=== PATIENT | male | born 1960 | race Caucasian/White ===

== ENCOUNTER 2017-04-01 08:52 | Emergency (ER) | payer BC ==
[2017-04-01 09:42] VITALS: BP 127/81
--- NOTE | 2017-04-01 11:29 | UC ---
Dena Tang Emily, scribed for Lorna Askew DO on 04/01/17 at 1054 . Respiratory Complaint HPI - HPI Summary HPI Summary: This patient is a 57 year old M presenting to urgent care with a chief complaint of waxing and waning cough that began 6 weeks ago and worsened 2 weeks ago. The patient rates the pain 0/10 in severity. Symptoms aggravated by deep breaths. Symptoms alleviated by nothing. Patient reports chest congestion and nasal congestion. Patient denies fever, chills, diaphoresis, sore throat, ear ache, CP, SOB, abd pain, nausea, and vomiting. - History of Current Complaint Chief Complaint: UCRespiratory Stated Complaint: URI Time Seen by Provider: 04/01/17 09:39 Hx Obtained From: Patient Onset/Duration: Sudden Onset, Lasting Weeks, Still Present Timing: Constant Severity Initially: Mild Severity Currently: Mild Pain Intensity: 0 Pain Scale Used: 0-10 Numeric Character: Cough: Productive Aggravating Factors: Deep Breaths Alleviating Factors: Nothing Associated Signs And Symptoms: Positive: Pleuritic Chest Pain, Nasal Congestion - Allergies/Home Medications Allergies/Adverse Reactions: Allergies Allergy/AdvReac Type Severity Reaction Status Date / Time No Known Allergies Allergy Verified 04/01/17 09:41 Home Medications: Home Medications Phenylephrine/Dm/Acetaminop/GG [Tylenol Cold-Flu Severe Caplet] 1 each PO [History] PMH/Surg Hx/FS Hx/Imm Hx Previously Healthy: Yes Endocrine History: Other Other Endocrine History: Negative Cardiovascular History: Other Other Cardiovascular History: Negative - Surgical History Surgical History: None Surgery Procedure, Year, and Place: WISDOM TEETH - Family History Known Family History: Negative: Cardiac Disease, Hypertension, Diabetes - Social History Occupation: Employed Full-time Lives: With Family Alcohol Use: Occasionally Substance Use Type: None Smoking Status (MU): Current Some Day Smoker Type: Cigarettes Review of Systems Constitutional: Other - Negative fever and chills Skin: Other - Negative diaphoresis ENT: Sinus Congestion, Other - Negative sore throat and ear ache Respiratory: Cough, Other - Positive chest congestion. Negative SOB Cardiovascular: Other - Negative CP Gastrointestinal: Other - Negative abd pain, nausea, and vomiting All Other Systems Reviewed And Are Negative: Yes Physical Exam - Summary Physical Exam Summary: Appearance: Well-Appearing, No Pain Distress, Well-Nourished Eyes: conjunctiva clear, no discharge ENT: Hearing grossly normal, no muffled/hoarse voice. TMs normal, negative tonsillar swelling, negative tonsillar exudate, negative trismus. Neck: Normal, Supple Respiratory/Lung Sounds: Lungs clear, No respiratory distress, No accessory muscle use, Prolonged expiration at the bases Cardiovascular: RRR, No murmur Abdomen (if she checks): Nontender, Soft, no guarding, not distended Bowel Sounds (if she checks): Present Musculoskeletal: Normal Neurological: Alert, muscle tone normal Psychiatric:Normal, age appropriate behavior Skin: Normal, Warm, Dry, Normal color Triage Information Reviewed: Yes Vital Signs: Initial Vital Signs Temp 98.1 F 04/01/17 09:38 Pulse 84 04/01/17 09:38 Resp 18 04/01/17 09:38 BP 127/81 04/01/17 09:38 Pulse Ox 99 04/01/17 09:38 Vital Signs Reviewed: Yes UC Diagnostic Evaluation - Laboratory O2 Sat by Pulse Oximetry: 99 Respiratory Course/Dx - Course Course Of Treatment: This patient is a 57 year old M presenting to urgent care with a chief complaint of waxing and waning cough that began 6 weeks ago and worsened 2 weeks ago. The patient will be discharged with a prescription for Albuterol inhaler, azithromycin, benzonatate, guaifenesin, and guaifenesin with codeine and with follow up from PCP. Medications reviewed. Allergies reviewed. Patient has been encouraged to quit smoking. - Differential Dx/Diagnosis Provider Diagnoses: Bronchitis. Allergies Discharge - Discharge Plan Condition: Stable Disposition: HOME Prescriptions: Albuterol HFA INHALER* [Ventolin HFA Inhaler*] 2 puff INH Q4H PRN #1 mdi PRN Reason: Sob/Wheezing Azithromycin TAB* [Zithromax TAB (Z-TEDDY) 250 mg #6 tabs] 0 mg PO .SEE INSTRUCTIONS #6 tab Benzonatate CAP* [Tessalon 100 MG CAP*] 100 mg PO TID #30 cap guaiFENesin ER TAB [Mucinex*] 600 mg PO BID PRN #1 box PRN Reason: Cough guaiFENesin/CODIEN 100MG-10MG* [Robitussin AC 100Mg-10Mg*] 5 - 10 ml PO Q4H PRN #100 udc MDD 10ml PRN Reason: Cough Patient Education Materials: Acute Bronchitis (ED), Allergies (ED) Referrals: Cyril Malone MD [Primary Care Provider] - If Needed Additional Instructions: THE FOLLOWING MED IS FOR TREATING THE ALLERGIC COMPONANT OF YOUR CONDITION. IT TAKES ABOUT 3 DAYS BEFORE IT WILL START TO WORK. NASAL CORTICOSTEROID INHALER: Nasal "cortisone" inhalers decrease swelling and inflammation in the nasal passages. Nasal steroids decrease the effects of allergy and infection without affecting your whole body. They do NOT cause the side effects we see with steroid shots or pills. These inhalers are a long-term investment in keeping your nose and sinuses clear. You probably won't notice any difference for at least a day. Sometimes it takes several days. Once you have noticed improvement, you can cut back on the inhaler. If your problem only occurs at certain times of the year, you can stop it when you' re better. There's no harm in using it for a long time. Some patients may notice a dry tight throat at first. If you develop severe pain, fever, or foul nasal drainage, see the doctor at once. THE NEXT 4 MEDS WILL HELP WITH THE UNPLEASANTNESS OF COUGHING INHALED BRONCHODILATORS: You have received a prescription for an inhaled bronchodilator -- a medication which stimulates the airways in the lung to dilate. This improves the flow of air in asthma, bronchitis, and emphysema. These medicines have some similarity to adrenaline, and can cause similar side effects: shakiness, racing heart, and a sense of nervousness. These side effects decrease with time. Contact your doctor if these side effects are severe. Do not over-use the medicine. Too-frequent use of the inhaler may make it ineffective. Call your doctor if the inhaler is not controlling your symptoms at the prescribed doses. COUGH-SUPPRESSANT & EXPECTORANT MEDICATION: You are to use a cough medication as needed for relief of symptoms. This medicine is a combination of an expectorant (to make the mucous thinner and more easily "coughed up") and a cough suppressant (to reduce the frequency of coughing). The cough-suppressant medicine is related to narcotics. You may experience mild nausea and sleepiness. Some patients who are very sensitive to narcotics may have stomach pain from this medicine. Taking the medicine with food reduces these side effects. Do not drive or work with machinery until you know how this medicine affects you. The expectorant should have no side effects. Iodine-containing expectorants (such as organidin) should not be taken by persons with active thyroid disease unless approved by your doctor. Call the doctor if you develop shortness of breath, hives, rash, itching, lightheadedness, or severe nausea and vomiting. EXPECTORANT MEDICATION: WE SENT IN A SCRIPT FOR MUCINEX SO THAT IT IS EASIER FOR YOU TO PICK THE RIGHT MED AT THE PHARMACY. HOWEVER, YOU CAN ALSO GO TO THE [facility] STORE AND BUY PLAIN GUAIFENESIN WITHOU BINDERS OR FILLERS. An expectorant medicine has been prescribed. This type of drug makes mucous thinner, helping the sinuses, nose, and bronchial tubes to remain free of pus and mucous. Expectorants make a cough less severe and more comfortable, and help infected sinuses drain. In general, antihistamines defeat the purpose of the expectorant by making mucous thicker. They should be avoided unless specifically recommended by your physician. TESSALON PERLES: You have received a prescription for Tessalon Perles (benzonatate). This is a non-narcotic medicine for relief of cough. It usually works in about 15- 20 minutes and lasts around four hours. Tessalon Perles should be swallowed. They should not be chewed or dissolved in the mouth (this can produce temporary numbing of the mouth and choking can occur). If you develop any adverse effects such as wheezing, shortness of breath, hives, rash, itching, or lightheadedness, please return at once. ANTIBIOTICS ARE NOT CURRENTLY INDICATED FOR YOUR CONDITION. hOWEVER, IF YOUR SYMPTOMS WORSEN OR PERSIST FOR OVER THE NEXT 3-5 DAYS, YOU CAN TAKE THE FOLLOWING MEDICATION: AZITHROMYCIN: Azithromycin (Zithromax) is a broad spectrum antibiotic in the same class as erythromycin. It can treat a variety of bacterial infections, but is most frequently used for respiratory infections. Azithromycin is extremely long-lasting. It accumulates in body tissues and continues to kill bacteria for many days. In order to improve absorption, Azithromycin should be taken at least one hour before or two hours after a meal. It does not have the same strong tendency to upset the stomach as erythromycin and is usually very well tolerated. Patients who have had a rash or other true allergic reactions to erythromycin should not take this medication. Call if you develop gastrointestinal distress, severe diarrhea, rash, hives, itching, or shortness of breath. ANYTIME YOU TAKE AN ANTIBIOTIC, IT IS IMPORTANT TO REPLENISH THE BODY'S SUPPLY OF "GOOD BACTERIA." YOU CAN GET GOOD BACTERIA FROM HIGH QUALITY CULTURED FOODS SUCH LOCAL YOGURT, SOUR KRAUT, MAHAMED BLAS, NATURALLY FERMENTED PICKLES AND PROBIOTIC DRINKS. YOU CAN ALSO GET GOOD BACTERIA FROM A PROBIOTIC SUPPLEMENT. DO NOT TAKE XANAX WHILE YOU ARE TAKING COUGH MEDICINES. The documentation as recorded by the Dena owens Emily accurately reflects the service I personally performed and the decisions made by me, Lorna Askew DO.
== END 2017-04-01 11:15 | disposition home or self-care (01) ==
LOC: UCEAST 08:52
DX: J40 Bronchitis, not specified as acute or chronic (principal); R09.81 Nasal congestion; J31.0 Chronic rhinitis; Z72.0 Tobacco use
CPT/HCPCS: 99202; G0463

== ENCOUNTER 2018-01-16 21:31 | Emergency (ER) | payer BC ==
--- NOTE | 2018-01-16 21:56 | ED ---
Syncope/Near Syncope - HPI Summary HPI Summary: This patient is a 57 year old M brought in by ambulance to [facility] with a chief complaint of several syncopal episodes since earlier this evening. The patient reports that he felt dizzy while at a bar and then woke up on the floor. Witnesses reported that that patient fell on his face. EMS note that the patient was briefly in AFib but converted to NSR en route and was hypotensive. Patient reports that he saw his PCP 1 day ago and had an EKG done. The patient rates the pain 0/10 in severity. Symptoms aggravated by nothing. Symptoms alleviated by nothing. Patient reports dizziness, vision changes, chest pain, and pain in the right side of his face. Patient denies palpitations or SOB. Patient reports that he had 1.5 pints to drink [employer]. - History Of Current Complaint Time Seen by Provider: 01/16/18 21:44 Hx Obtained From: Patient Onset/Duration: Sudden Onset, Lasting Minutes, Resolved Timing: Minutes Context: Witnessed Activity At Onset: At Rest Associated Head Trauma: Yes Aggravating Factor(s): Nothing Alleviating Factor(s): Nothing Associated Signs And Symptoms: Negative - negative palpitations, Chest Pain, Dizzy - Allergies/Home Medications Allergies/Adverse Reactions: Allergies Allergy/AdvReac Type Severity Reaction Status Date / Time No Known Allergies Allergy Verified 01/07/18 09:22 Home Medications: Home Medications NK [No Home Medications Reported] 01/16/18 [History Confirmed 01/16/18] PMH/Surg Hx/FS Hx/Imm Hx Endocrine/Hematology History: Reports: Hx Thyroid Disease - GRAVE'S DISEASE Denies: Hx Diabetes Cardiovascular History: Denies: Hx Congestive Heart Failure, Hx Hypertension Respiratory History: Reports: Hx Sleep Apnea History: Reports: Hx Kidney Stones Denies: Hx Renal Disease, Other Problems/Disorders Sensory History: Reports: Hx Contacts or Glasses - DISTANCE ONLY Denies: Hx Hearing Aid Opthamlomology History: Reports: Hx Contacts or Glasses - DISTANCE ONLY Psychiatric History: Reports: Hx Anxiety - Surgical History Surgery Procedure, Year, and Place: WISDOM TEETH Hx Anesthesia Reactions: No - NOT THAT PATIENT RECALLS Infectious Disease History: Denies: Traveled Outside the [place] in Last 30 Days - Family History Known Family History: Negative: Cardiac Disease, Hypertension, Diabetes - Social History Alcohol Use: Occasionally Substance Use Type: Reports: None Smoking Status (MU): Current Some Day Smoker Type: Cigarettes Review of Systems Negative: Fever Positive: Other - positive vision changes Negative: Epistaxis Positive: Chest Pain. Negative: Palpitations Musculoskeletal: Other - right side facial pain Neurological: Other - positive dizziness Positive: Syncope All Other Systems Reviewed And Are Negative: Yes Physical Exam - Summary Physical Exam Summary: VITAL SIGNS: Reviewed. GENERAL: Patient is a well-developed and nourished MALE who is lying comfortable in the stretcher. Patient is not in any acute respiratory distress. HEAD AND FACE: No ecchymosis, hematomas or skull depressions. No sinus tenderness. Red tender area over right side of face. EYES: EOMI x 2, no nystagmus. Subconjunctival hemorrhage of right eye over the temporal side. left pupil is 2-3mm round and reactive. Right pupil is oval in shape and sluggish. Horizontal dimension is 2-3 mm, vertical dimension 1-2 mm. EARS: Hearing grossly intact. Ear canals and tympanic membranes are within normal limits. MOUTH: Oropharynx within normal limits. NECK: Supple, trachea is midline, no adenopathy, no JVD, no carotid bruit, no c- spine tenderness, neck with full ROM. CHEST: Symmetric, no tenderness at palpation LUNGS: Clear to auscultation bilaterally. No wheezing or crackles. CVS: Regular rate and rhythm, S1 and S2 present, no murmurs or gallops appreciated. ABDOMEN: Soft, non-tender. No signs of distention. No rebound no guarding, and no masses palpated. Bowel sounds are normal. EXTREMITIES: FROM in all major joints, no edema, no cyanosis or clubbing. NEURO: Alert and oriented x 3. No acute neurological deficits. Speech is normal and follows commands. SKIN: Dry and warm Triage Information Reviewed: Yes Vital Signs Reviewed: Yes Diagnostics - Laboratory Result Diagrams: 01/16/18 22:13 01/16/18 22:13 Lab Statement: Any lab studies that have been ordered have been reviewed, and results considered in the medical decision making process. - Radiology CXR Radiology Interpretation Completed By: ED Physician - Dr. Kaminski, pending official report Summary of Radiographic Findings: no acute process - CT CT Brain CT Interpretation Completed By: Radiologist Summary of CT Findings: No acute intracranial abnormality. Dr. Kaminski has reviewed this report CT Maxillofacial CT Interpretation Completed By: Radiologist Summary of CT Findings: markedly displaced right inferior orbital floor fracture , with herniation of extraocular fat and fracture fragments into the right maxillary sinus. Fracture involves the right intraorbital foramen. Dr. Kaminski has reviewed this report. - EKG 21:56 Cardiac Rate: NL - at 70 bpm EKG Rhythm: Sinus Rhythm ST Segment: Normal Ectopy: None Summary of EKG Findings: NSR at 70 bpm with nml axis, nml intervals, and no acute changes Course/Dx Course Of Treatment: This patient is a 57 year old M brought in by ambulance to [facility] with a chief complaint of several syncopal episodes since earlier this evening. The patient reports that he felt dizzy while at a bar and then woke up on the floor after hitting the right side of his face. EMS note that the patient was briefly in AFib but converted to NSR en route and was hypotensive. Patient reports dizziness, vision changes, chest pain, and pain in the right side of his face. An EKG reveals NSR at 70 bpm no nml axis, nml intervals, and no acute changes. CXR reveals no acute process. CT Brain reveals, per radiologist, no acute intracranial abnormality. CT Maxillofacial reveals, per radiologist, markedly displaced right inferior orbital floor fracture, with herniation of extraocular fat and fracture fragments into the right maxillary sinus. Fracture involves the right intraorbital foramen. ED physician has reviewed these radiology reports. Test results with no significant abnormalities. In the ED course the patient was given IV fluids. Visual acuity was performed and was 20/15 in each eye. At 23:28 discussed patient care with Dr. Oneill who said no intervention was needed at this time and he will come see the patient in the morning. Dr. Chavez, hospitalist, was paged at 23:53. At 23:59 discussed patient care with Dr. Chavez, hospitalist, who agreed to admit the patient. Dx syncope, paroxysmal Afib, traumatic anisocoria, and orbital fracture. Patient will be admitted to [facility]. The patient is agreeable with this plan. - Diagnoses Provider Diagnoses: Syncope, Orbital fracture, Paroxysmal A-fib, Anisocoria - Physician Notifications Discussed Care of Patient With: Donavan Oneill Time Discussed With Above Provider: 23:28 Instructed by Provider To: Other - Discussed with Dr. Singh who said no intervention was needed at this time and he will come see the patient in the morning. At 11:59 discussed patient care with Dr. Chavez, hospitalist, who agreed to admit the patient to [facility]. Discharge - Sign-Out/Discharge Documenting (check all that apply): Patient Departure - Discharge Plan Condition: Stable Disposition: ADMITTED TO [facility] Referrals: Cyril Malone MD [Primary Care Provider] - - Billing Disposition and Condition Condition: STABLE Disposition: Admitted to [facility] - Attestation Statements Document Initiated by Linda: Yes Documenting Scribe: Alee Miranda Provider For Whom Linda is Documenting (Include Credential): Stacia Kaminski MD Scribe Attestation: Alee Tang scribed for Stacia Kaminski MD on 01/17/18 at 0633. Scribe Documentation Reviewed: Yes Provider Attestation: The documentation as recorded by the Alee owens accurately reflects the service I personally performed and the decisions made by Verona low MD Status of Scribe Document: Viewed
[2018-01-16] MEDS ORDERED: NS 0.9% 1000 ML* 1,000 ML IV ONE (21:59)
[2018-01-16 22:21] LABS: ABS Basophils 0 10^3/ul (0-0.2); ABS Eosinophils 0.1 10^3/ul (0-0.6); ABS Lymphocytes 2.8 10^3/ul (1.0-4.8); ABS Monocytes 0.6 10^3/ul (0-0.8); ABS Neutrophils 4.3 10^3/ul (1.5-7.7); ABS Nucleated RBC 0 10^3/ul; Eosinophil % 1.1 %; Hematocrit 42 % (42-52); Hemoglobin 13.9 g/dl (14.0-18.0); Mean Corpuscular HGB Conc 33 g/dl (31-36); Mean Corpuscular Hemoglobin 30 pg (27-31); Mean Corpuscular Volume 91 fL (80-94); Mean Platelet Volume 6.9 fL (7.4-10.4); Nucleated Red Blood Cells % 0.1; Platelet Count 258 10^3/ul (150-450); Red Blood Count 4.62 10^6/ul (4.00-5.40); Red Cell Distribution Width 13 % (10.5-15); White Blood Count 7.8 10^3/ul (3.5-10.8)
[2018-01-16 22:35] LABS: INR 1.04 (0.77-1.02)
[2018-01-16 22:39] LABS: EGFR Non-African American 74.2 (>60)
[2018-01-16] MEDS ORDERED: Ondansetron INJ* 2 MG/ML VIAL IV ONE (23:18)
[2018-01-16] MEDS ORDERED: Morphine VIAL* 4 MG/ML VIAL (1 ml vial) IV ONE (23:18)
[2018-01-16] MEDS ORDERED: Piperacillin/Tazobac ADVAN(*) 3.375 GM in NS 0.9% 100 ML* 100 ML IVPB ONE (23:19)
[2018-01-16] MEDS ORDERED: traMADol TAB* 50 MG ONE (23:51)
[2018-01-16] MEDS ORDERED: traMADol TAB* 50 MG PO ONE (23:54)
[2018-01-17] MEDS ORDERED: LORazepam INJ* 2 MG/ML 1 ML VIAL IV PUSH ONE (02:40)
--- NOTE | 2018-01-17 03:57 | CONSULT ---
Subjective Date of Service: 01/16/18 Interval History: this is medical consult pt is full code info from pt and and er attending and staff hpi this is a 57 yr old wm with hx of anxiety has been drinking 1-2 glasses of wine/ beers at night daily went to a bar for a drink ---> pt had only 1.5 drinks in the bar and suddenly fell forward and landed on his face ---> ems was summoned - --> he was hypotensive and was in rapid a fib at rate of 140---> pt has no hx of a fib and later self converted back to normal sinus after arrival to er ---- > vital has been stable when this database report writer saw him. intial head ct was neg but ct of facial bone showed sig r inferior orbit fracture with herniation of fat as well as fragement of bone into maxillary sinus. er dr called optho secondary school teacher librarian Dr Godinez who will see pt in am. this database report writer called in Trauma Surgery secondary school teacher librarian who was concerned his sig inferior orbital floor frractue that needs surgery repair. unfortunately, there is no surgical service in this [facility] and transfer to a tertiary center where this repair surgery can be done ---> transfer intiated with alem bojorquez( [facility] is greatly appreciated for this support ) pt himself and his girlfriend are both informed and is willing to be transferred phx anxiety got a script of xanax but has not started yet hx of etoh consumption about 1-2 glasses of wine or 1-2 beers daily at night with dinner cig smoking 1 pack per week pshx none social hx cig and etoh as in phx no ivda he works a principal for a [employer] fhx none when asked reg htn/dm/cva/cad Review of Systems - Measurements Intake and Output: Intake and Output Last 24 Hours 01/14/18 01/15/18 01/16/18 01/17/18 06:59 06:59 06:59 06:59 Intake Total 1100 Balance 1100 Weight 200 lb Intake: IV Fluids 1100 - Review of Systems General Comments: ros pertinent as per hpi Objective Vital Signs - 8 hr 01/16/18 01/16/18 01/16/18 21:48 21:50 22:00 Temperature 97.8 F Pulse Rate 65 73 70 Respiratory 25 23 16 Rate Blood Pressure 134/82 134/82 (mmHg) O2 Sat by Pulse 99 100 99 Oximetry 01/16/18 01/16/18 01/16/18 22:48 23:00 23:17 Temperature Pulse Rate 77 75 77 Respiratory 18 20 19 Rate Blood Pressure 136/90 137/90 (mmHg) O2 Sat by Pulse 98 98 100 Oximetry 01/16/18 01/17/18 01/17/18 23:48 00:00 00:03 Temperature Pulse Rate 79 77 75 Respiratory 26 17 16 Rate Blood Pressure 144/93 (mmHg) O2 Sat by Pulse 98 99 99 Oximetry 01/17/18 01/17/18 00:18 03:31 Temperature Pulse Rate 79 Respiratory 17 16 Rate Blood Pressure 132/85 (mmHg) O2 Sat by Pulse 99 Oximetry Oxygen Devices in Use Now: None Appearance: nad Eyes: - - r pupil is sluggish to light with conjutaval hemorrage no gross visual deficits Ears/Nose/Mouth/Throat: NL Teeth, Lips, Gums, Clear Oropharnyx, Mucous Membranes Moist Neck: NL Appearance and Movements; NL JVP, Trachea Midline, No Thyroid Enlargement, Masses Respiratory: Symmetrical Chest Expansion and Respiratory Effort, Clear to Auscultation Cardiovascular: NL Sounds; No Murmurs; No JVD, RRR Abdominal: NL Sounds; No Tenderness; No Distention Extremities: No Edema, - - able to raise ue and le against gravity Skin: No Rash or Ulcers Neurological: Alert and Oriented x 3, NL Sensation - ekg ns no acute st t changes, NL Muscle Strength and Tone Result Diagrams: 01/16/18 22:13 01/16/18 22:13 Assessment/Plan - Billing Plan By Medical Problem: this is a 57 yr old wm went for a drink but was found to in rapid a fib when ems came to the bar pt converted back to sinus but he has a sig r inferior orbital fracture with frag in maxillary sinus a/p 1. sig displaced of r inferior orbital fractue with fragment in the maxillary sinus - will transfer to tertiary center where this service is avaible to avoid this sig displaced orbital fracture to cause eye muscle entrapment - ? abx ---> no abx given yet 2. a fib new onset converted himself with long hx of etoh 1-2 drinks daily --- > not sure it is paf vs lone a fib ---> no prior hx of a fib - echo to eval left atrial size - tele monitering - cardio consult in [facility] - no b blcoker given yet since he converted himself ---> not anticoag started yet 3 anxiety will give ativan 0.5 q [address] 4 pain due to orbital fx got tramadol prior does not help ---> morphine 2 mg q 4 -6 hr as tolerated this database report writer will call trauma surgery Dr Prince and eye Dr Oneill in am for update and their eval are greatly appreciated VTE PPX: scd for now Diet: npo until orbit surgery eval Code Status: full Admission Status and Rationale:
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
[2018-01-17 05:34] VITALS: BP 142/80
== END 2018-01-17 04:20 | disposition short-term general hospital (02) ==
LOC: ED 21:31
DX: R55 Syncope and collapse (principal); S02.31XA Fracture of orbital floor, right side, initial encounter for closed fracture; W18.30XA Fall on same level, unspecified, initial encounter; Y92.89 Other specified places as the place of occurrence of the external cause; I48.0 Paroxysmal atrial fibrillation; H57.02 Anisocoria; Z72.0 Tobacco use
CPT/HCPCS: 36415; 70450; 70486; 71045; 80053; 80320; 82550; 82553; 83735; 84443; 84484; 85025; 85610; 85730; 93005; 96365; 96375; 99285; A9270-GY; G0480; J2060; J2270; J2405; J2543